=== PATIENT | female | born 2000 | race Hispanic/Latino ===

== ENCOUNTER 2023-01-25 00:29 | Inpatient (IN) | payer SELFPAY ==
[2023-01-25] MEDS ORDERED: ACETYLCYSTEINE IV SCH ×2 (02:00)
[2023-01-25] MEDS ORDERED: WATER IV SCH ×2 (02:00)
[2023-01-25] MEDS ORDERED: DEXTROSE 5% IV SCH ×2 (02:00)
[2023-01-25 02:01] LABS: #Basophils 0.1 thou/uL (0.0-0.2); #Monocytes 0.6 thou/uL (0.11-0.59); #Neutrophils 9.4 thou/uL (1.40-6.50); %Basophils 0.5 % (0.0-1.0); %Lymphocytes 8.5 % (21.0-51.0); %Monocytes 5.5 % (0.0-10.0); %Neutrophils 85.2 % (42.0-75.0); Hematocrit 34.3 % (36.0-47.0); Hemoglobin 11.1 g/dL (12.0-16.0); Mean Corpuscular HGB CONC 32.4 g/dL (32.0-36.0); Mean Corpuscular Hemoglobin 28.5 pg (27.0-31.0); Mean Corpuscular Volume 88.2 fl (78.0-98.0); Mean Platelet Volume 10.2 fL (7.4-10.4); Platelet Count 320 10x3/uL (130-400); RBC Distribution Width 13.7 % (11.5-14.5); Red Blood Cell (RBC) Count 3.89 mill/uL (4.20-5.40)
[2023-01-25 02:12] LABS: INR-International Normal Ratio 1.2; PTT 39.1 sec (22.9-36.1)
[2023-01-25 02:23] LABS: Acetaminophen Less than 10 mcg/mL (10.0-30.0); Alcohol Less than 10.0 mg/dL (Less than 10); Salicylate Less than 8.0 mg/dL (15.0-30.0)
[2023-01-25 02:30] LABS: ALT (SGPT) Less than 7 U/L (8-55); AST (SGOT) 10 U/L (5-34); Albumin 4.1 g/dL (3.5-5.0); Alkaline Phosphatase 60 U/L (40-110); Anion Gap 16 mmol/L (10-20); BUN (Urea Nitrogen) 5 mg/dL (7.0-18.7); Bilirubin, Total 0.5 mg/dL (0.2-1.2); Calc. Creatinine Clearance 0 mL/min (70-130); Calcium 8.1 mg/dL (7.8-10.44); Carbon Dioxide 17 mmol/L (22-29); Chloride 110 mmol/L (98-107); Estimated GFR 126; Globulin 2.6 g/dL (2.4-3.5); Glucose 93 mg/dL (70-105); Potassium 3.6 mmol/L (3.5-5.1); Protein, Total 6.7 g/dL (6.0-8.3); Sodium 139 mmol/L (136-145)
[2023-01-25] MEDS ORDERED: Ondansetron ODT 4 MG TAB PO PRN (02:51)
[2023-01-25] MEDS ORDERED: Ondansetron PF 4 MG/2 ML Vial IVP PRN (02:51)
[2023-01-25 04:06] VITALS: BMI 33.4
[2023-01-25] MEDS ORDERED: Albuterol 200 PUFF (6.7GM INHALER) INH PRN (04:49)
[2023-01-25] MEDS ORDERED: FLU VACC QS2023-24(6MOS UP)/PF 60 MCG/0.5 ML SYRINGE IM ONE (09:00)
[2023-01-25 10:32] LABS: ALT (SGPT) Less than 7 U/L (8-55); AST (SGOT) 10 U/L (5-34); Alkaline Phosphatase 61 U/L (40-110); Anion Gap 11 mmol/L (10-20); BUN (Urea Nitrogen) 5 mg/dL (7.0-18.7); Bilirubin, Total 1.1 mg/dL (0.2-1.2); Calc. Creatinine Clearance 203 mL/min (70-130); Calcium 8.6 mg/dL (7.8-10.44); Carbon Dioxide 22 mmol/L (22-29); Chloride 107 mmol/L (98-107); Estimated GFR 127; Globulin 2.2 g/dL (2.4-3.5); Glucose 101 mg/dL (70-105); Potassium 3.2 mmol/L (3.5-5.1); Protein, Total 6.2 g/dL (6.0-8.3); Sodium 137 mmol/L (136-145)
[2023-01-25] MEDS: Famotidine 20 MG TAB PO SCH ×2 (11:24→21:42)
[2023-01-25] MEDS ORDERED: Potassium Chloride 20 MEQ TAB PO SCH (13:15)
[2023-01-25 16:08] LABS: INR-International Normal Ratio 1.1; Prothrombin Time 14.8 sec (12.0-14.7)
[2023-01-25 16:10] LABS: Protein, Total 6.6 g/dL (6.0-8.3)
[2023-01-25 16:12] LABS: Bilirubin, Total 1.4 mg/dL (0.2-1.2)
[2023-01-25 16:13] LABS: Alkaline Phosphatase 73 U/L (40-110)
[2023-01-25 16:15] LABS: AST (SGOT) 9 U/L (5-34); Bilirubin, Direct 0.5 mg/dL (0.1-0.3)
[2023-01-25 16:16] LABS: ALT (SGPT) Less than 7 U/L (8-55); Acetaminophen Less than 10 mcg/mL (10.0-30.0)
[2023-01-26] MEDS: Famotidine 20 MG TAB PO SCH (08:46)
[2023-01-26 08:50] VITALS: BP 113/64; TEMP 97.7
== END 2023-01-26 13:55 | disposition home or self-care (01) | DRG 918 ==
LOC: ERS 00:29 → IMCU/EMU 02:42 → T4-A 17:51
PROVIDERS: ADMIT Student in an Organized Health Care Education/Training Program; ATTEND Family Medicine
DX: T39.1X2A Poisoning by 4-Aminophenol derivatives, intentional self-harm, initial encounter (principal); E87.20 Acidosis, unspecified; F32.A Depression, unspecified; F41.9 Anxiety disorder, unspecified; J45.909 Unspecified asthma, uncomplicated; E87.6 Hypokalemia; Z98.890 Other specified postprocedural states; Y92.9 Unspecified place or not applicable
CPT/HCPCS: 36415; 36416; 80053; 80143; 80307; 85025; 85610; 85730; 93005; 96365; J0132; J7070